=== PATIENT | male | born 1955 | race Caucasian/White ===

== ENCOUNTER 2018-09-13 16:18 | Inpatient (IN) | payer MEDICARE, MEDICAID ==
[~2018-09-13] VITALS: Ht 177.8 cm; Wt 142.9 kg
[~2018-09-13 16:18] MED LIST: BUPR-93 PO; BUSP15 PO; CARB200T6 PO; CEPH500 PO; FURO20 PO; METO25XL PO
[2018-09-13 18:14] LABS: GLUCOSE,POINT OF CARE 103 MG/DL (70-110)
[2018-09-13] MEDS ORDERED: QUEtiapine FUMARATE 100 MG TABLET PO ONE (19:00)
[2018-09-13] MEDS ORDERED: LORazepam 2 MG TABLET PO ONE (19:00)
[2018-09-13] MEDS ORDERED: ZOLPIDEM TARTRATE 10 MG TABLET PO PRN (19:15)
[2018-09-13 19:21] LABS: BASOPHILS % (AUTO) 1.1 % (0.0-2.0); EOSINOPHILS % (AUTO) 1.2 % (1.0-6.0); HEMATOCRIT 41.1 % (41-53); HEMOGLOBIN 14.4 g/dL (13.5-17.5); LYMPHOCYTES # (AUTO) 2.6 K/uL (1.0-4.8); MEAN CORPUSCULAR HEMOGLOBIN 30.4 pg (26.0-34.0); MEAN CORPUSCULAR HGB CONC 35.1 G/dL (31.0-37.0); MEAN CORPUSCULAR VOLUME 87 fL (80-100); MONOCYTES # (AUTO) 0.8 K/uL (0.1-1.0); MONOCYTES % (AUTO) 7.5 % (2.0-9.0); NEUTROPHILS # (AUTO) 6.5 K/uL (1.8-7.7); NEUTROPHILS % (AUTO) 64.2 % (40.0-70.0); PLATELET COUNT (AUTO) 238 K/uL (150-450); RED BLOOD CELL COUNT(AUTO) 4.75 MIL/uL (4.50-5.90)
[2018-09-13 19:47] LABS: ALANINE AMINOTRANSFERASE 42 U/L (12-78); ALBUMIN 3.8 g/dL (3.4-5.0); ALKALINE PHOSPHATASE 90 U/L (46-116); ANION GAP 11 mmol/L (8-16); ASPARTATE AMINOTRANSFERASE 31 U/L (15-37); BILIRUBIN,TOTAL 0.8 mg/dL (0.1-1.0); CALCIUM, TOTAL 9.5 mg/dL (8.8-10.5); CARBON DIOXIDE 28 mmol/L (22-29); CHLORIDE 99 mmol/L (98-107); CREATININE 1.35 mg/dL (0.60-1.30); GLOMERULAR FILTR. RATE CALC 53 mL/min (>60); GLUCOSE,RANDOM 102 mg/dL (70-110); SODIUM SERUM 138 mmol/L (136-145); TOTAL PROTEIN, SERUM 7.1 g/dL (6.4-8.2); UREA NITROGEN, BLOOD 22 mg/dL (7-18)
[2018-09-13 19:50] LABS: POTASSIUM 2.8 mmol/L (3.5-5.1)
[2018-09-13] MEDS ORDERED: POTASSIUM CHLORIDE 20 MEQ ER TABLET PO ONE ×2 (20:15)
[2018-09-13] MEDS ORDERED: DOCUSATE SODIUM 100 MG CAPSULE PO PRN (22:00)
[2018-09-13] MEDS ORDERED: NICOTINE 14 MG/24 HOUR PATCH TD PRN (22:00)
[2018-09-13] MEDS ORDERED: IBUPROFEN 400 MG TABLET PO PRN (22:00)
[2018-09-13] MEDS ORDERED: GuaiFENesin/D-METHORPHAN [SUGAR-FREE] 200-20MG/10 ML SYRUP UDCUP PO PRN (22:00)
[2018-09-13] MEDS ORDERED: LOPERAMIDE HCL 2 MG CAPSULE PO PRN (22:00)
[2018-09-13] MEDS ORDERED: ACETAMINOPHEN 325 MG TABLET PO PRN (22:00)
[2018-09-13] MEDS ORDERED: MAG HYDROX/AL HYDROX/SIMETH ES 30 ML SUSPENSION UDCUP PO PRN (22:00)
[2018-09-13] MEDS ORDERED: CloNIDine HCL 0.1 MG TABLET PO PRN (22:00)
[2018-09-13] MEDS ORDERED: PETROLATUM,WHITE 28 GM JELLY TP PRN (22:00)
[2018-09-13] MEDS ORDERED: ALBUTEROL SULFATE HFA 90 MCG/PUFF 8 GM INHALER IH PRN (22:00)
[2018-09-13] MEDS ORDERED: ONDANSETRON HCL 4 MG TABLET PO PRN (22:00)
[2018-09-13 22:23] VITALS: BP 110/98
[2018-09-13 22:35] VITALS: BP 110/61
[2018-09-14 06:44] LABS: BASOPHILS % (AUTO) 0.7 % (0.0-2.0); EOSINOPHILS % (AUTO) 2.1 % (1.0-6.0); HEMATOCRIT 40.8 % (41-53); HEMOGLOBIN 14.1 g/dL (13.5-17.5); LYMPHOCYTES # (AUTO) 1.7 K/uL (1.0-4.8); LYMPHOCYTES % (AUTO) 23.6 % (22.0-44.0); MEAN CORPUSCULAR HEMOGLOBIN 30.4 pg (26.0-34.0); MEAN CORPUSCULAR HGB CONC 34.6 G/dL (31.0-37.0); MEAN CORPUSCULAR VOLUME 88 fL (80-100); MONOCYTES # (AUTO) 0.7 K/uL (0.1-1.0); NEUTROPHILS # (AUTO) 4.5 K/uL (1.8-7.7); NEUTROPHILS % (AUTO) 63.6 % (40.0-70.0); RED BLOOD CELL COUNT(AUTO) 4.64 MIL/uL (4.50-5.90); RED CELL DISTRIBUTION WIDTH 14.1 % (11.5-14.5)
[2018-09-14 07:04] LABS: PLATELET COUNT (AUTO) 216 K/uL (150-450)
[2018-09-14 07:17] LABS: HEMOGLOBIN A1C 5.8 % (4.5-6.2)
[2018-09-14] MEDS: METOPROLOL SUCCINATE 25 MG ER TABLET PO SCH ×2 (08:30→16:58)
[2018-09-14] MEDS: FUROSEMIDE 20 MG TABLET PO SCH (08:30)
[2018-09-14 08:34] LABS: ANION GAP 11 mmol/L (8-16); CARBON DIOXIDE 27 mmol/L (22-29); CHLORIDE 101 mmol/L (98-107); POTASSIUM 3.2 mmol/L (3.5-5.1); SODIUM SERUM 139 mmol/L (136-145)
[2018-09-14 09:00] LABS: ALANINE AMINOTRANSFERASE 43 U/L (12-78); ALKALINE PHOSPHATASE 87 U/L (46-116); ASPARTATE AMINOTRANSFERASE 31 U/L (15-37); CHOL/HDL RATIO 4.9 (4.2-7.3); CHOLESTEROL 181 mg/dL (131-200); HDL CHOLESTEROL 37 mg/dL (40-60); LDL CHOL (CALC.) 122 mg/dL (0-130); THYROID STIMULATING HORMONE 0.38 uIU/mL (0.36-3.74); TOTAL PROTEIN, SERUM 6.4 g/dL (6.4-8.2); TRIGLYCERIDES 112 mg/dL (15-150); UREA NITROGEN, BLOOD 0 mg/dL (7-18)
[2018-09-14 09:14] LABS: ALBUMIN 3.6 g/dL (3.4-5.0); CALCIUM, TOTAL 9.5 mg/dL (8.8-10.5); CREATININE 1.16 mg/dL (0.60-1.30); GLOMERULAR FILTR. RATE CALC > 60 mL/min (>60); GLUCOSE,RANDOM 115 mg/dL (70-110)
[2018-09-14] MEDS: QUEtiapine FUMARATE 100 MG TABLET PO PRN ×2 (09:56→20:54)
[2018-09-14] MEDS: LORazepam 2 MG TABLET PO PRN ×2 (09:56→20:56)
[2018-09-14 10:14] VITALS: BP 131/83
[2018-09-14] MEDS ORDERED: POTASSIUM CHLORIDE 20 MEQ ER TABLET PO ONE (15:45)
[2018-09-14 16:07] VITALS: BP 126/77
[2018-09-14 16:08] LABS: APPEARANCE,URINE CLEAR (CLEAR); BILIRUBIN,URINE NEGATIVE (NEGATIVE); GLUCOSE, URINE (UA) NEGATIVE (NEGATIVE); KETONES,URINE NEGATIVE (NEGATIVE); LEUKOCYTE ESTERASE ,URINE NEGATIVE (NEGATIVE); NITRATE,URINE NEGATIVE (NEGATIVE); OCCULT BLOOD,URINE NEGATIVE (NEGATIVE); PH,URINE 5.5 (5.0-8.0); PROTEIN,URINE NEGATIVE (NEGATIVE); UROBILINOGEN,URINE 0.2 mg/dL (<=1.0)
[2018-09-14 16:11] LABS: AMPHET/METH SCREEN,URINE NEGATIVE (NEGATIVE); BARBITURATE SCREEN, URINE NEGATIVE (NEGATIVE); BENZODIAZEPINES SCREEN,URINE NEGATIVE (NEGATIVE); CANNABINOID SCREEN,URINE NEGATIVE (NEGATIVE); COCAINE SCREEN,URINE NEGATIVE (NEGATIVE); METHADONE SCREEN, URINE NEGATIVE (NEGATIVE); OPIATE SCREEN,URINE NEGATIVE (NEGATIVE)
[2018-09-14 16:14] LABS: PHENCYCLIDINE SCREEN,URINE NEGATIVE (NEGATIVE)
[2018-09-14] MEDS: BusPIRone HCL 15 MG TABLET PO SCH (16:58)
[2018-09-14] MEDS: CarBAMazepine 200 MG TABLET PO SCH (16:58)
[2018-09-14] MEDS ORDERED: METOPROLOL SUCCINATE 25 MG ER TABLET PO SCH (17:00)
[2018-09-15] MEDS: METOPROLOL SUCCINATE 25 MG ER TABLET PO SCH ×2 (08:44→16:49)
[2018-09-15] MEDS: FUROSEMIDE 20 MG TABLET PO SCH (08:44)
[2018-09-15] MEDS: CarBAMazepine 200 MG TABLET PO SCH ×3 (08:44→16:49)
[2018-09-15] MEDS: BuPROPion HCL XL 150 MG ER TABLET PO SCH (08:45)
[2018-09-15] MEDS: BusPIRone HCL 15 MG TABLET PO SCH ×3 (08:46→16:49)
[2018-09-15 09:49] VITALS: BP 123/83
[2018-09-15 16:47] VITALS: BP 117/71
[2018-09-15 16:48] VITALS: BP 117/71
[2018-09-15] MEDS: LORazepam 2 MG TABLET PO PRN (21:59)
[2018-09-15] MEDS: QUEtiapine FUMARATE 100 MG TABLET PO PRN (21:59)
[2018-09-15] MEDS: MAGNESIUM HYDROXIDE SUSPENSION 30 ML UDCUP PO PRN (22:05)
[2018-09-16 07:04] VITALS: BP 136/93
[2018-09-16] MEDS: LORazepam 2 MG TABLET PO PRN (07:09)
[2018-09-16] MEDS: QUEtiapine FUMARATE 100 MG TABLET PO PRN ×2 (07:09→21:32)
[2018-09-16 08:45] VITALS: BP 130/78
[2018-09-16] MEDS: FUROSEMIDE 20 MG TABLET PO SCH (08:50)
[2018-09-16] MEDS: BusPIRone HCL 15 MG TABLET PO SCH ×3 (08:50→16:40)
[2018-09-16] MEDS: METOPROLOL SUCCINATE 25 MG ER TABLET PO SCH ×2 (08:51→16:40)
[2018-09-16] MEDS: CarBAMazepine 200 MG TABLET PO SCH ×3 (08:51→16:40)
[2018-09-16] MEDS: BuPROPion HCL XL 150 MG ER TABLET PO SCH (08:52)
[2018-09-16 16:14] VITALS: BP 113/74
[2018-09-17 01:23] VITALS: BP 148/88
[2018-09-17 08:10] VITALS: BP 143/77
[2018-09-17] MEDS: FUROSEMIDE 20 MG TABLET PO SCH (08:21)
[2018-09-17] MEDS: BuPROPion HCL XL 150 MG ER TABLET PO SCH (08:21)
[2018-09-17] MEDS: METOPROLOL SUCCINATE 25 MG ER TABLET PO SCH ×2 (08:21→16:45)
[2018-09-17] MEDS: CarBAMazepine 200 MG TABLET PO SCH ×3 (08:22→16:45)
[2018-09-17] MEDS: BusPIRone HCL 15 MG TABLET PO SCH ×3 (08:22→16:45)
[2018-09-17] MEDS: QUEtiapine FUMARATE 100 MG TABLET PO PRN ×2 (08:24→18:57)
[2018-09-17] MEDS: LORazepam 2 MG TABLET PO PRN ×2 (08:31→17:34)
[2018-09-17] MEDS: MAGNESIUM HYDROXIDE SUSPENSION 30 ML UDCUP PO PRN (09:06)
[2018-09-17 16:52] VITALS: BP 148/76
[2018-09-18 08:35] VITALS: BP 135/73
[2018-09-18] MEDS: CarBAMazepine 200 MG TABLET PO SCH ×3 (08:36→16:35)
[2018-09-18] MEDS: FUROSEMIDE 20 MG TABLET PO SCH (08:37)
[2018-09-18] MEDS: BusPIRone HCL 15 MG TABLET PO SCH ×3 (08:37→16:35)
[2018-09-18] MEDS: METOPROLOL SUCCINATE 25 MG ER TABLET PO SCH ×2 (08:37→16:35)
[2018-09-18] MEDS: BuPROPion HCL XL 150 MG ER TABLET PO SCH (08:38)
[2018-09-18] MEDS: LORazepam 2 MG TABLET PO PRN ×2 (08:46→20:35)
[2018-09-18] MEDS: QUEtiapine FUMARATE 100 MG TABLET PO PRN ×2 (08:47→20:35)
[2018-09-18 16:22] VITALS: BP 132/62
[2018-09-18 20:34] VITALS: BP 144/60
[2018-09-19 08:22] VITALS: BP 127/91
[2018-09-19] MEDS: METOPROLOL SUCCINATE 25 MG ER TABLET PO SCH ×2 (08:38→16:43)
[2018-09-19] MEDS: FUROSEMIDE 20 MG TABLET PO SCH (08:38)
[2018-09-19] MEDS: BusPIRone HCL 15 MG TABLET PO SCH ×3 (08:38→16:43)
[2018-09-19] MEDS: CarBAMazepine 200 MG TABLET PO SCH ×3 (08:38→16:43)
[2018-09-19] MEDS: BuPROPion HCL XL 150 MG ER TABLET PO SCH (08:39)
[2018-09-19] MEDS: QUEtiapine FUMARATE 100 MG TABLET PO PRN ×2 (08:46→20:14)
[2018-09-19] MEDS: LORazepam 2 MG TABLET PO PRN ×2 (08:46→20:14)
[2018-09-19 17:20] VITALS: BP 145/89
[2018-09-20 02:28] VITALS: BP 131/94
[2018-09-20] MEDS: QUEtiapine FUMARATE 100 MG TABLET PO PRN ×2 (02:31→09:19)
[2018-09-20] MEDS: LORazepam 2 MG TABLET PO PRN ×2 (02:31→09:19)
[2018-09-20 08:05] VITALS: BP 126/99
[2018-09-20] MEDS: FUROSEMIDE 20 MG TABLET PO SCH (09:05)
[2018-09-20] MEDS: CarBAMazepine 200 MG TABLET PO SCH ×3 (09:05→16:17)
[2018-09-20] MEDS: BusPIRone HCL 15 MG TABLET PO SCH ×3 (09:05→16:17)
[2018-09-20] MEDS: METOPROLOL SUCCINATE 25 MG ER TABLET PO SCH ×2 (09:05→16:17)
[2018-09-20] MEDS: BuPROPion HCL XL 150 MG ER TABLET PO SCH (09:06)
[2018-09-20 16:05] VITALS: BP 127/78
== END 2018-09-20 23:55 | disposition short-term general hospital (02) | DRG 885 ==
LOC: EMS 16:20 → 3EX 19:42
PROVIDERS: ADMIT Psychiatry & Neurology Psychiatry; ATTEND Psychiatry & Neurology Psychiatry
PROC: 5A09357 Assistance with Respiratory Ventilation, Less than 24 Consecutive Hours, Continuous Positive Airway Pressure (ICD-10-PCS; principal; 2018-09-17)
DX: F31.4 Bipolar disorder, current episode depressed, severe, without psychotic features (principal); R45.851 Suicidal ideations; I13.0 Hypertensive heart and chronic kidney disease with heart failure and stage 1 through stage 4 chronic kidney disease, or unspecified chronic kidney disease; N17.9 Acute kidney failure, unspecified; Z68.42 Body mass index [BMI] 45.0-49.9, adult; N18.9 Chronic kidney disease, unspecified; E87.6 Hypokalemia; J44.9 Chronic obstructive pulmonary disease, unspecified; G47.33 Obstructive sleep apnea (adult) (pediatric); I50.9 Heart failure, unspecified; F15.90 Other stimulant use, unspecified, uncomplicated; R45.87 Impulsiveness; F41.9 Anxiety disorder, unspecified; E66.01 Morbid (severe) obesity due to excess calories; F10.20 Alcohol dependence, uncomplicated; Y90.9 Presence of alcohol in blood, level not specified; Z71.41 Alcohol abuse counseling and surveillance of alcoholic; Z88.8 Allergy status to other drugs, medicaments and biological substances; Z79.899 Other long term (current) drug therapy
CPT/HCPCS: 80307; 83036; 84132; 84443; 94660; G0378; G0480